=== PATIENT | female | born 1975 | race Caucasian/White ===

== ENCOUNTER 2016-08-02 03:45 | Inpatient (IN) | payer BC, OTHER ==
[~2016-08-02] VITALS: Ht 157.5 cm; Wt 106.6 kg
[~2016-08-02 03:45] MED LIST: PROM25TA10 PO
[2016-08-02] MEDS ORDERED: IV NORMAL SALINE 1000ML BAG 1,000 ML IV SCH ×2 (04:09→05:42)
[2016-08-02 04:16] LABS: BASO # 0.1 x10^3/uL (0.0-0.2); BASO % 1 % (0-3); EOS % 3 % (0-3); HEMATOCRIT 40.6 % (36.0-47.0); HEMOGLOBIN 13.4 g/dL (12.0-15.5); LYMPH # 4.1 x10^3/uL (1.0-4.8); LYMPH % 40 % (24-48); MEAN CORPUSCULAR HEMOGLOBIN 30 pg (25-35); MEAN CORPUSCULAR HGB CONC 33 g/dL (31-37); MEAN CORPUSCULAR VOLUME 89 fL (79-100); MONO % 8 % (0-9); NEUT % 48 % (31-73); PLATELET COUNT 355 x10^3/uL (140-400); RED BLOOD COUNT 4.56 x10^6/uL (3.50-5.40); RED CELL DISTRIBUTION WIDTH 13.9 % (11.5-14.5); WHITE BLOOD COUNT 10.1 x10^3/uL (4.0-11.0)
[2016-08-02] MEDS: NITROGLYCERIN SUBLINGUAL 0.4 MG BOTTLE OF 25. SL PRN ×3 (04:17→04:30)
[2016-08-02] MEDS ORDERED: ASPIRIN 81 MG TAB.CHEW PO ONE (04:30)
[2016-08-02 04:43] LABS: CALCIUM 8.9 mg/dL (8.5-10.1); CREATININE 0.8 mg/dL (0.6-1.0); GFR 79.9; POTASSIUM 4.2 mmol/L (3.5-5.1)
[2016-08-02 04:46] LABS: CKMB MASS 0.5 ng/mL (0.0-3.6); CREATINE KINASE 62 U/L (26-192)
[2016-08-02] MEDS: FENTANYL PF 100 MCG/2 ML VIAL. IV PRN ×2 (04:47→05:50)
[2016-08-02 04:52] LABS: ALBUMIN 3.6 g/dL (3.4-5.0); DIRECT BILIRUBIN 0.1 mg/dL (0.0-0.2); MAGNESIUM 1.9 mg/dL (1.8-2.4); TOTAL BILIRUBIN 0.3 mg/dL (0.2-1.0); TOTAL PROTEIN 7.1 g/dL (6.4-8.2)
[2016-08-02] MEDS ORDERED: FENTANYL PF 100 MCG/2 ML VIAL. IV PRN (05:45)
[2016-08-02] MEDS ORDERED: ONDANSETRON PF 4 MG/2 ML VIAL. IV PRN ×2 (05:45→12:00)
[2016-08-02] MEDS ORDERED: ACETAMINOPHEN 325 MG TABLET. PO PRN ×2 (05:45→12:00)
--- NOTE | 2016-08-02 05:51 | PHYS DOC ---
Past Medical History Past Medical History: Diabetes-Type II, Hypertension Additional Past Medical Histor: PLANTAR FACISITIES Past Surgical History: Cholecystectomy, Other Additional Past Surgical Histo: breast reduction, cyst removed Alcohol Use: None Drug Use: None Adult General Chief Complaint Chief Complaint: CHEST PAIN HPI HPI Patient is a 41 year old female who presents with complaint of chest pain. Patient states that her symptoms started worsening approximately 1 hour prior to arrival, however patient also states that she has been having intermittent chest pain over the past 3 weeks. Patient also states that she has been having back pain during this time. Patient states that her pain currently radiates into her back. Patient denies any associated nausea or sweating. Patient has history of hypertension, diabetes mellitus type 2. Patient also states that she has family history of myocardial infarction. Patient has remote history of social tobacco use but is not a current smoker. Patient describes the pain as "clinching," and rates it 8 out of 10. Patient has not taken any medications to help with symptoms. Review of Systems Review of Systems Constitutional: Denies fever or chills [] Eyes: Denies change in visual acuity, redness, or eye pain [] HENT: Denies nasal congestion or sore throat [] Respiratory: Denies cough or shortness of breath [] Cardiovascular: Chest pain [] GI: Denies abdominal pain, nausea, vomiting, bloody stools or diarrhea [] : Denies dysuria or hematuria [] Musculoskeletal: Back pain [] Integument: Denies rash or skin lesions [] Neurologic: Denies headache, focal weakness or sensory changes [] Endocrine: Denies polyuria or polydipsia [] Current Medications Current Medications Current Medications Medications (Trade) Dose Ordered Sig/Candelaria Start Time Stop Time Status Last Admin Dose Admin Aspirin (Children'S Aspirin) 324 mg 1X ONCE 08/02/16 04:30 08/02/16 04:31 DC 08/02/16 04:16 324 MG Fentanyl Citrate 50 mcg 50 mcg PRN Q15MIN PRN 08/02/16 04:15 08/03/16 04:14 08/02/16 04:47 50 MCG Nitroglycerin (Nitrostat) 0.4 mg PRN Q5MIN PRN 08/02/16 04:15 08/03/16 04:14 08/02/16 04:30 0.4 MG Sodium Chloride (Iv Sodium Chloride 0.9% 1000ml Bag) 1,000 ml @ 100 mls/hr Q10H 08/02/16 04:09 08/02/16 14:08 08/02/16 04:20 100 MLS/HR Allergies Allergies Allergies Coded Allergies Type Severity Reaction Last Updated Verified clarithromycin Allergy Intermediate 07/11/16 Yes latex Allergy Intermediate 07/01/15 Yes nifedipine Allergy Intermediate leg swelling 06/29/15 Yes povidone-iodine Allergy Intermediate 07/11/16 Yes soap Allergy Intermediate 07/11/16 Yes topiramate Adverse Reaction Intermediate see comment 07/01/15 Yes Physical Exam Physical Exam Constitutional: Alert, afebrile, appears in moderate discomfort. [] HENT: Normocephalic, atraumatic, bilateral external ears normal, oropharynx moist, no oral exudates, nose normal. [] Eyes: PERRLA, EOMI, conjunctiva normal, no discharge. [] Neck: Normal range of motion, no tenderness, supple, no stridor. [] Cardiovascular:Heart rate regular rhythm, no murmur [] Lungs & Thorax: Bilateral breath sounds clear to auscultation [] Abdomen: Bowel sounds normal, soft, no tenderness, no masses, no pulsatile masses. [] Skin: Warm, dry, no erythema, no rash. [] Back: No tenderness, no CVA tenderness. [] Extremities: No tenderness, no cyanosis, no clubbing, ROM intact, no edema. [] Neurologic: Alert and oriented X 3, normal motor function, normal sensory function, no focal deficits noted. [] Current Patient Data Vital Signs Vital Signs Date Time Temp Pulse Resp B/P Pulse Ox O2 Delivery O2 Flow Rate FiO2 08/02/16 04:47 18 93 Room Air 08/02/16 04:30 100 159/76 08/02/16 04:01 98 98.0 Lab Values Laboratory Tests Test 08/02/16 03:56 White Blood Count 10.1x10^3/uL (4.0-11.0) Red Blood Count 4.56x10^6/uL (3.50-5.40) Hemoglobin 13.4g/dL (12.0-15.5) Hematocrit 40.6% (36.0-47.0) Mean Corpuscular Volume 89fL (79-100) Mean Corpuscular Hemoglobin 30pg (25-35) Mean Corpuscular Hemoglobin Concent 33g/dL (31-37) Red Cell Distribution Width 13.9% (11.5-14.5) Platelet Count 355x10^3/uL (140-400) Neutrophils (%) (Auto) 48% (31-73) Lymphocytes (%) (Auto) 40% (24-48) Monocytes (%) (Auto) 8% (0-9) Eosinophils (%) (Auto) 3% (0-3) Basophils (%) (Auto) 1% (0-3) Neutrophils # (Auto) 4.8x10^3uL (1.8-7.7) Lymphocytes # (Auto) 4.1x10^3/uL (1.0-4.8) Monocytes # (Auto) 0.8x10^3/uL (0.0-1.1) Eosinophils # (Auto) 0.3x10^3/uL (0.0-0.7) Basophils # (Auto) 0.1x10^3/uL (0.0-0.2) Sodium Level 140mmol/L (136-145) Potassium Level 4.2mmol/L (3.5-5.1) Chloride Level 102mmol/L (98-107) Carbon Dioxide Level 27mmol/L (21-32) Anion Gap 11 (6-14) Blood Urea Nitrogen 10mg/dL (7-20) Creatinine 0.8mg/dL (0.6-1.0) Estimated GFR (Cockcroft-Gault) 79.9 Glucose Level 120mg/dL (70-99) H Calcium Level 8.9mg/dL (8.5-10.1) Magnesium Level 1.9mg/dL (1.8-2.4) Total Bilirubin 0.3mg/dL (0.2-1.0) Direct Bilirubin 0.1mg/dL (0.0-0.2) Aspartate Amino Transferase (AST) 29U/L (15-37) Alanine Aminotransferase (ALT) 49U/L (14-59) Alkaline Phosphatase 96U/L (46-116) Creatine Kinase 62U/L (26-192) Creatine Kinase MB (Mass) 0.5ng/mL (0.0-3.6) Creatine Kinase MB Relative Index % (0-4) Troponin I Quantitative < 0.017ng/mL (0.000-0.055) YA-Vjg-V-Type Natriuretic Peptide 36pg/mL (0-124) Total Protein 7.1g/dL (6.4-8.2) Albumin 3.6g/dL (3.4-5.0) Laboratory Tests 08/02/16 03:56 Laboratory Tests 08/02/16 03:56 EKG EKG Interpreted by me: Heart rate 100, sinus rhythm, leftward axis, no acute ST/T- wave abnormalities present [] Radiology/Procedures Radiology/Procedures One view AP chest x-ray interpreted by me: No infiltrate, no effusion, normal cardiac silhouette [] Course & Med Decision Making Course & Med Decision Making Pertinent Labs and Imaging studies reviewed. (See chart for details) Patient had bilateral blood pressure measurements which were consistent, thus suspicion for aortic dissection is low. The patient was given aspirin, nitroglycerin, and fentanyl in the emergency department. Patient states that her pain has been reduced but is still present at this time. Patient's initial cardiac enzymes were negative. Patient has risk factors for coronary artery disease including diabetes mellitus, hypertension, and family history. The patient will need to be admitted the hospital to rule out myocardial infarction. Patient was admitted to Dr. Madera. A routine consult was placed to Dr. Dupree to follow patient in hospital. Dragon Disclaimer Dragon Disclaimer This electronic medical record was generated, in whole or in part, using a voice recognition dictation system. Departure Departure Impression: Primary Impression: Chest pain Additional Impressions: Hypertension Diabetes mellitus Family history of myocardial infarction Disposition: ADMITTED INPATIENT Admitting Physician: Other Condition: STABLE Referrals: NO PCP (PCP) Problem Qualifiers Primary Impression: Chest pain Chest pain type: unspecified Qualified Code: R07.9 - Chest pain, unspecified Additional Impressions: Hypertension Hypertension type: essential hypertension Qualified Code: I10 - Essential ( primary) hypertension Diabetes mellitus Diabetes mellitus type: type 2 Diabetes mellitus complication status: without complication Diabetes mellitus usp insulin use: without usp use Qualified Code: E11.9 - Type 2 diabetes mellitus without complications MARANDA BRODY MD Aug 02, 2016 05:51
--- NOTE | 2016-08-02 06:48 | EKG ---
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
--- NOTE | 2016-08-02 07:29 | RAD ---
Indication chest pain. A single view of the chest was obtained. No prior imaging of the chest is available. The heart and pulmonary vessels appear normal. The lungs are clear. There is no pleural fluid or pneumothorax. Bony structures appear grossly intact. IMPRESSION: No acute or focal process is seen in the chest.
[2016-08-02 08:28] VITALS: BP 139/89
[2016-08-02 08:29] VITALS: BP 139/89
--- NOTE | 2016-08-02 08:56 | PDOC2 ---
CLARK CHAPPELL [facility] BILLER 08/02/16 0856: CARDIAC CONSULT DATE OF CONSULT Date of Consult DATE: 08/02/16 TIME: 08:48 REASON FOR CONSULT Reason for Consult: Chest pain REFERRING PHYSICIAN Referring Physician: Keshia SOURCE Source: Chart review, Patient HISTORY OF PRESENT ILLNESS HISTORY OF PRESENT ILLNESS This is a pleasant 41 yo female admitted for complains of chest pain. Reports that she woke up around 3 AM yesterday with squeezing/sharp midsternal pain which is simultaneous to her midback. When she has this pain this she feels some nausea but otherwise denies any palpitations, SOA. Denies any BURGESS. She has been having episodes of diaphoresis at night sometimes waking up drenched in sweats. Reports that with her work she typically lifts close to 50 pounds but she has been off lately in the last 2-3 weeks due to recent respiratory infection. This finally got better over a week ago. She also recently moved and has been unpacking some boxes this weekend. She has been having intermittent chest pain in the last 2 weeks sometimes it last all day. Her chest pain is reproducible with mild palpation both chest and back and ROM to left shoulder and positional changes but it also happens when she is still. She is significant for torn labrum and spurs to her left shoulder in the past which she had arthroscopic surgery on and also feels grating sensation to her right shoulder. She also has been taking Midol daily in the last 8-10 days mainly due to her menstrual cycle cramps. Denies any heartburn or GERD symptoms. Reports HELEN but has not been using her CPAP. Denies any recent long distance travels. She is significant for degenerative disc disease. Also reports that she has major depression with bipolar and currently attending psych therapy as an outpt. Suicide attempt in the past but denies any at this time. She has been feeling stressed out both at work and at home recently as well and at times feels panic attacks. Denies any CAD, VTE, falls or recent injury. PAST MEDICAL HISTORY Cardiovascular: HTN Pulmonary: Asthma, Other (HELEN (has not been using CPAP)) CENTRAL NERVOUS SYSTEM: Migraine GI: No pertinent hx Heme/Onc: No pertinent hx Hepatobiliary: Other (fatty liver diseae) Psych: Anxiety, Bipolar, Depression Musculoskeletal: Osteoarthritis, Other (mrbid obesity, plantar fascitis) Rheumatologic: No pertinent hx Infectious disease: No pertinent hx ENT: Allergic Rhinitis Renal/: UTI Endocrine: Diabetes (2) Dermatology: No pertinent hx PAST SURGICAL HISTORY Past Surgical History: Arthroscopy (left shoulder), Cholecystectomy, Other ( breast reduction) FAMILY HISTORY Family History: Coronary Artery Disease (grandmother), Other (SCD- father at 48 no autopsy done. ) SOCIAL HISTORY Smoke: No (previous smoker) ALCOHOL: none Drugs: None Lives: with Family CURRENT MEDICATIONS CURRENT MEDICATIONS Current Medications Medications (Trade) Dose Ordered Sig/Candelaria Route PRN Reason Start Time Stop Time Status Last Admin Dose Admin Aspirin (Children'S Aspirin) 324 mg 1X ONCE PO 08/02/16 04:30 08/02/16 04:31 DC 08/02/16 04:16 Nitroglycerin (Nitrostat) 0.4 mg PRN Q5MIN PRN SL CP RATING > 1/10 08/02/16 04:15 08/03/16 04:14 08/02/16 04:30 Fentanyl Citrate 50 mcg 50 mcg PRN Q15MIN PRN IV PAIN GREATER THAN 3/10 08/02/16 04:15 08/02/16 06:00 DC 08/02/16 05:50 Sodium Chloride (Iv Sodium Chloride 0.9% 1000ml Bag) 1,000 ml @ 100 mls/hr Q10H IV 08/02/16 04:09 08/02/16 05:48 DC 08/02/16 04:20 ALLERGIES ALLERGIES: Coded Allergies: clarithromycin (Verified Allergy, Intermediate, 07/11/16) latex (Verified Allergy, Intermediate, 07/01/15) nifedipine (Verified Allergy, Intermediate, leg swelling, 06/29/15) povidone-iodine (Verified Allergy, Intermediate, 07/11/16) soap (Verified Allergy, Intermediate, 07/11/16) topiramate (Verified Adverse Reaction, Intermediate, see comment, 07/01/15 ) headache, "memory loss" ROS Review of System 14 point ROS evaluated with pertinent positives noted per HPI PHYSICAL EXAM General: Alert, Oriented X3, Cooperative, No acute distress HEENT: Atraumatic, Mucous membr. moist/pink Lungs: Clear to auscultation, Normal air movement Heart: Regular rate, Normal S1, Normal S2, No murmurs Abdomen: Soft, No tenderness Extremities: No cyanosis, No edema Skin: No breakdown, No significant lesion Neuro: Normal speech, Sensation intact Psych/Mental Status: Mental status NL, Mood NL MUSCULOSKELETAL: Other (limited ROM to Left shoulder with duplicated CP and back pain with ROM and palpation) VITALS VITALS Vital Signs Date Time Temp Pulse Resp B/P Pulse Ox O2 Delivery O2 Flow Rate FiO2 08/02/16 08:29 97.8 91 20 139/89 95 Room Air 97.8 LABS Lab: Laboratory Tests Test 08/02/16 03:56 White Blood Count 10.1x10^3/uL (4.0-11.0) Red Blood Count 4.56x10^6/uL (3.50-5.40) Hemoglobin 13.4g/dL (12.0-15.5) Hematocrit 40.6% (36.0-47.0) Mean Corpuscular Volume 89fL (79-100) Mean Corpuscular Hemoglobin 30pg (25-35) Mean Corpuscular Hemoglobin Concent 33g/dL (31-37) Red Cell Distribution Width 13.9% (11.5-14.5) Platelet Count 355x10^3/uL (140-400) Neutrophils (%) (Auto) 48% (31-73) Lymphocytes (%) (Auto) 40% (24-48) Monocytes (%) (Auto) 8% (0-9) Eosinophils (%) (Auto) 3% (0-3) Basophils (%) (Auto) 1% (0-3) Neutrophils # (Auto) 4.8x10^3uL (1.8-7.7) Lymphocytes # (Auto) 4.1x10^3/uL (1.0-4.8) Monocytes # (Auto) 0.8x10^3/uL (0.0-1.1) Eosinophils # (Auto) 0.3x10^3/uL (0.0-0.7) Basophils # (Auto) 0.1x10^3/uL (0.0-0.2) Sodium Level 140mmol/L (136-145) Potassium Level 4.2mmol/L (3.5-5.1) Chloride Level 102mmol/L (98-107) Carbon Dioxide Level 27mmol/L (21-32) Anion Gap 11 (6-14) Blood Urea Nitrogen 10mg/dL (7-20) Creatinine 0.8mg/dL (0.6-1.0) Estimated GFR (Cockcroft-Gault) 79.9 Glucose Level 120mg/dL (70-99) Calcium Level 8.9mg/dL (8.5-10.1) Magnesium Level 1.9mg/dL (1.8-2.4) Total Bilirubin 0.3mg/dL (0.2-1.0) Direct Bilirubin 0.1mg/dL (0.0-0.2) Aspartate Amino Transf (AST/SGOT) 29U/L (15-37) Alanine Aminotransferase (ALT/SGPT) 49U/L (14-59) Alkaline Phosphatase 96U/L (46-116) Creatine Kinase 62U/L (26-192) Creatine Kinase MB (Mass) 0.5ng/mL (0.0-3.6) Creatine Kinase MB Relative Index % (0-4) Troponin I Quantitative < 0.017ng/mL (0.000-0.055) [id number]-Type Natriuretic Peptide 36pg/mL (0-124) Total Protein 7.1g/dL (6.4-8.2) Albumin 3.6g/dL (3.4-5.0) ASSESSMENT/PLAN ASSESSMENT/PLAN 1. Atypical Chest pain: Mixed features. Doubt ACS. Also component of GI could not be ruled out with daily NSAID use int he last 1-2 weeks. Initial troponin normal, continue to trend. EKG SR without acute changes. CXR unremarkable. Reproducible CP and back pain with palpation and ROM to left shoulder. This could also be masking ischemic changes with notable symptoms of nausea and at times waking up diaphoretic. Notable cardiac risk factors noted Father with SCD at 48 yo, uncontrolled HTN, DM2, new HLP and morbid obesity. Pretest probability for CAD is 8%. Will proceed with MPI to completely rule out any ischemic involvement. Will obtain testing prior. Recommend rehab MD consultation and will start on ECASA 81 mg and PPI. 2. Accelerated HTN: Complicated by uncontrolled HELEN. Possible hypertensive heart disease. TTE today. On BB at home, would prefer to switch to ACEi for cardiorenal protection unless specific use for BB other than HTN. 3. HLP: new. Will start on statin with hx of DM2. 4. DM2: takes metformin at home 5. Morbid obesity: lifestyle modification 6. Hx of depression/anxiety/bipolar disorder: currently taking outpt psych therapy. 7. HELEN: has not been using CPAP for several months. Encourage to restart. 8. Family hx of SCD: Father suddenly at 48 no autopsy done. Problems: OSMANY ANGLIN MD 08/02/16 7188: CARDIAC CONSULT ALLERGIES ALLERGIES: Coded Allergies: clarithromycin (Verified Allergy, Intermediate, 07/11/16) latex (Verified Allergy, Intermediate, 07/01/15) nifedipine (Verified Allergy, Intermediate, leg swelling, 06/29/15) povidone-iodine (Verified Allergy, Intermediate, 07/11/16) soap (Verified Allergy, Intermediate, 07/11/16) topiramate (Verified Adverse Reaction, Intermediate, see comment, 07/01/15 ) headache, "memory loss" ASSESSMENT/PLAN ASSESSMENT/PLAN Patient seen and examined. Agree with INCINERATOR ATTENDANT's assessment and plan. Lexiscan nuclear stress test did not show any significant ischemia. Chest pain most probably musculoskeletal. Blood pressure better controlled since admission. Okay for discharge from cardiac standpoint. Thank you for your consultation. Problems: CLARK CHAPPELL APRN Aug 02, 2016 08:56 OSMANY ANGLIN MD Aug 02, 2016 16:28
[2016-08-02] MEDS ORDERED: DULO20CA PO (08:58)
[2016-08-02] MEDS ORDERED: METO25TA9 PO (08:58)
[2016-08-02] MEDS ORDERED: METF500T4 PO (08:58)
[2016-08-02] MEDS ORDERED: CETI10TA22 PO (08:59)
[2016-08-02] MEDS ORDERED: OXCA300T PO (08:59)
[2016-08-02] MEDS ORDERED: TRAZ50TA15 PO (08:59)
[2016-08-02 09:37] LABS: CHOLESTEROL/HDL RATIO 4.2
--- NOTE | 2016-08-02 09:45 | ACF ---
Admission Forms Criteria TELEMETRY CARE Telemetry Admission Guidelines (Place 'X' for any and all applicable criteria): Admission to telemetry [A] may be indicated for ANY ONE of the following(1)(2)(3 )(4)(5): [X]I. Cardiac disease, including ANY ONE of the following (9)(10)(11)(12)(13 ): [ ]a) Postacute WI [ ]b) Low-risk patients with ST-segment elevation WI who have undergone successful percutaneous coronary intervention [ ]c) Unstable angina [X]d) Suspected WI (until it is ruled out) [ ]e) Post cardiac surgery (first 48 to 72 hours unless complications occur) [ ]f) Acute arrhythmias (including significant tachycardia or bradycardia) [B] [ ]g) Firing of an implantable cardioverter defibrillator [C] [ ]h) Suspected pacemaker or implantable cardioverter defibrillator malfunction (10) [ ]i) New administration or adjustment of an antiarrhythmic drug [D ] [ ]j) Child admitted for acute congestive heart failure [ ]j) Long QT syndrome [ ]k) Advanced heart block (eg, second-degree Mobitz type II, third- degree heart block) [ ]l) Acute myocarditis or pericarditis [ ]m) Short-term (ambulatory or inpatient) monitoring after a cardiac procedure as indicated by ANY ONE of the following [E]: [ ]i) Electrophysiologic studies [ ]ii) Percutaneous coronary intervention with stent placement [ ]iii) Pacemaker placement with cardiac conduction defect [ ]iv) Implantable cardiac defibrillator placement [ ]II. Drug overdose or poisoning with substance that causes arrhythmias or QT prolongation (eg, phenothiazines, sympathomimetic agents, cyclic antidepressants, digitalis, antiarrhythmic drugs)(15) [ ]III. Short-term (ambulatory or inpatient) monitoring after therapeutic or diagnostic procedure requiring conscious sedation or anesthesia (eg, endoscopy, elective cardioversion) [ ]IV. Acute cerebrovascular even[F](18) [ ]V. Massive blood transfusion (eg, at least 10 units of packed red blood cells in 24 hours) [ ]. Variceal bleeding after endoscopy, sclerotherapy, or IV vasopressin [ ]VII. Uncorrected electrolyte abnormalities associated with an increased risk of dangerous arrhythmia [G]; examples include [ ]a) Hyperkalemia with attributable ECG changes [ ]b) Potassium greater than 6.5 mmol/L (mEq/L) in a patient without history of chronic renal disease [ ]c) Prolonged QT attributed to hypokalemia, hypomagnesemia, or hypocalcemia [ ]VIII.Unexplained syncope or other neurologic event suspected of being due to arrhythmia due to a finding that increases risk; examples include(19)(20)(21): [ ]a) High-risk ECG findings (eg, bifascicular block, bradycardia, abnormal QT interval, ventricular pre- excitation) [ ]b) History of previous syncope due to arrhythmia [ ]c) Abnormal ventricular function (eg, reduced ejection fraction ) [ ]d) Exertional or supine syncope [ ]e) Concerning syncope characteristics (eg, sudden loss of consciousness without prodrome) [ ]f) Family history of sudden [ ]g) Use of arrhythmogenic medication [ ]h) Suspected cardiac ischemia [ ]i) Known channelopathy (eg, long QT syndrome, Brugada syndrome, or catecholaminergic paroxysmal ventricular tachycardia) [ ]j) Known structural heart disease (eg, hypertrophic cardiomyopathy , severe valvular disease) [ ]k) Palpitations preceding syncope The original [employer] content created by [employer] has been revised. The portions of the content which have been revised are identified through the use of italic text or in bold, and [employer] has neither reviewed nor approved the modified material. All other unmodified content is copyright [employer]. Please see references footnoted in the original [employer] edition 2016 Admission Criteria Met?: Yes ANTWON CHAVIRA Aug 02, 2016 09:45
[2016-08-02] MEDS ORDERED: ASPIRIN ENTERIC COATED 81 MG TABLET.DR. PO SCH (10:00)
[2016-08-02 11:00] VITALS: BP 151/91
[2016-08-02] MEDS ORDERED: PANTOPRAZOLE 40 MG TABLET. PO SCH (11:30)
[2016-08-02] MEDS ORDERED: TRAMADOL 50 MG TABLET. PO PRN (12:00)
[2016-08-02] MEDS ORDERED: DEXTROSE 50% 25 GM / 50ML DISP.SYRIN. IV PRN (12:00)
[2016-08-02] MEDS ORDERED: traZODone 50 MG TABLET. PO PRN (12:00)
[2016-08-02] MEDS ORDERED: ATOR10TA60 PO (12:15)
[2016-08-02] MEDS ORDERED: TRAM50TA PO (12:15)
[2016-08-02] MEDS ORDERED: ASPI81TA9 PO (12:15)
[2016-08-02] MEDS ORDERED: DULOXETINE HCL 20 MG CAPSULE.DR PO SCH (12:30)
[2016-08-02] MEDS ORDERED: CETIRIZINE HCL 10 MG TABLET PO SCH (12:30)
[2016-08-02] MEDS ORDERED: METFORMIN 500 MG TABLET. PO SCH (12:30)
[2016-08-02] MEDS ORDERED: OXCARBAZEPINE 300 MG TABLET. PO SCH (12:30)
[2016-08-02] MEDS ORDERED: METOPROLOL SUCC 24HR ER 50 MG TAB.ER.24H. PO SCH (12:30)
[2016-08-02] MEDS ORDERED: INSULIN ASPART 300 UNITS/3 ML INSULN.PEN SQ SCH (12:30)
[2016-08-02 12:57] LABS: BILIRUBIN,URINE NEGATIVE (NEG); GLUCOSE,URINE NEGATIVE (NEG); NITRITE,URINE NEGATIVE (NEG); PROTEIN,URINE NEGATIVE (NEG-TRACE); UROBILINOGEN,URINE 0.2 mg/dL (0.2 mg/dL)
[2016-08-02 12:59] LABS: NEG OBC UR NEG; POS OBC UR POS
[2016-08-02 13:04] LABS: BARBITURATES NEG (NEG); BENZODIAZEPINES NEG (NEG); CANNABINOIDS NEG (NEG); COCAINE NEG (NEG); METHADONE NEG (NEG); OPIATES NEG (NEG); PHENCYCLIDINE NEG (NEG)
[2016-08-02 13:06] LABS: BACTERIA,URINE FEW /HPF (0-FEW); RBC,URINE OCC /HPF (0-2); SQUAMOUS EPITHELIAL CELL,UR MANY /LPF
[2016-08-02 13:07] LABS: ETHANOL, URINE NEG (NEG)
[2016-08-02] MEDS ORDERED: REGADENOSON 0.4 MG/5 ML DISP.SYRIN. IV ONE (13:15)
[2016-08-02] MEDS ORDERED: PANT40TA5 PO (13:41)
--- NOTE | 2016-08-02 13:42 | PDOC1 ---
History and Physical Date of Admission Date of Admission 08/02/16 Identification/Chief Complaint Chief Complaint chest pain, back pain Problems: Source Source: Chart review, Patient History of Present Illness History of Present Illness HPI HPI Patient is a 41 year old female who presents with complaint of chest pain. pT said she has been feeling upper back pain for a long time. CHest pain for 3 weeks, happens when has stress, denies N/V or diaphoresis. The pain is sharp, 8/ 10, radiating to back. Has chest wall and epigastric tenderness. Patient has history of hypertension, diabetes mellitus type 2. Patient also states that she has family history of myocardial infarction. Patient has remote history of social tobacco use but is not a current smoker. chronic diarrhea since cholecystectomy. EKG, ce NEG. Past Medical History Cardiovascular: HTN Pulmonary: Asthma, Other (HELEN (has not been using CPAP)) CENTRAL NERVOUS SYSTEM: Migraine GI: No pertinent hx Heme/Onc: No pertinent hx Hepatobiliary: Other (fatty liver diseae) Psych: Anxiety, Bipolar, Depression Rheumatologic: No pertinent hx Infectious disease: No pertinent hx ENT: Allergic Rhinitis Renal/: UTI Endocrine: Diabetes (2) Dermatology: No pertinent hx Past Surgical History Past Surgical History: Arthroscopy (left shoulder), Cholecystectomy, Other ( breast reduction) Family History Family History: Coronary Artery Disease (grandmother), Other (SCD- father at 48 no autopsy done. ) Social History Smoke: No (previous smoker) ALCOHOL: none Drugs: None Current Problem List Problem List Problems Medical Problems: (1) Chest pain Status: Acute (2) Diabetes mellitus Status: Acute (3) Hypertension Status: Acute Current Medications Current Medications Current Medications Medications (Trade) Dose Ordered Sig/Candelaria Start Time Stop Time Status Last Admin Dose Admin Acetaminophen (Tylenol) 650 mg PRN Q6HRS PRN 08/02/16 12:00 Aspirin (Children'S Aspirin) 324 mg 1X ONCE 08/02/16 04:30 08/02/16 04:31 DC 08/02/16 04:16 324 MG Aspirin (Ecotrin) 81 mg DAILYWBKFT 08/02/16 10:00 Atorvastatin Calcium (Lipitor) 20 mg QHS 08/02/16 21:00 Cetirizine HCl (Zyrtec) 10 mg DAILY 08/02/16 12:30 Dextrose 12.5 gm PRN Q15MIN PRN 08/02/16 12:00 Duloxetine HCl (Cymbalta) 60 mg DAILY 08/02/16 12:30 Fentanyl Citrate (Fentanyl 2ml Vial) 50 mcg PRN Q15MIN PRN 08/02/16 04:15 08/02/16 06:00 DC 08/02/16 05:50 50 MCG Fentanyl Citrate 50 mcg 50 mcg PRN Q2HR PRN 08/02/16 05:45 08/03/16 05:44 Insulin Aspart (Novolog) 0-9 UNITS TIDWMEALS 08/02/16 12:30 Metformin HCl (Glucophage) 500 mg DAILY 08/02/16 12:30 Metoprolol Succinate (Toprol Xl) 50 mg DAILY 08/02/16 12:30 Nitroglycerin (Nitrostat) 0.4 mg PRN Q5MIN PRN 08/02/16 04:15 08/03/16 04:14 08/02/16 04:30 0.4 MG Ondansetron HCl (Zofran) 4 mg PRN Q6HRS PRN 08/02/16 12:00 Oxcarbazepine (Trileptal) 300 mg BID 08/02/16 12:30 Pantoprazole Sodium (Protonix) 40 mg DAILYAC 08/02/16 11:30 Regadenoson (Lexiscan) 0.4 mg 1X ONCE 08/02/16 13:15 08/02/16 13:20 DC 08/02/16 13:34 0.4 MG Sodium Chloride (Iv Sodium Chloride 0.9% 1000ml Bag) 1,000 ml @ 100 mls/hr Q10H 08/02/16 05:42 08/03/16 05:41 08/02/16 05:42 100 MLS/HR Tramadol HCl (Ultram) 50 mg PRN Q6HRS PRN 08/02/16 12:00 Trazodone HCl (Desyrel) 100 mg PRN QHS PRN 08/02/16 12:00 Allergies Allergies Allergies Coded Allergies Type Severity Reaction Last Updated Verified clarithromycin Allergy Intermediate 07/11/16 Yes latex Allergy Intermediate 07/01/15 Yes nifedipine Allergy Intermediate leg swelling 06/29/15 Yes povidone-iodine Allergy Intermediate 07/11/16 Yes soap Allergy Intermediate 07/11/16 Yes topiramate Adverse Reaction Intermediate see comment 07/01/15 Yes ROS Review of System CONSTITUTIONAL: No fever or chills EYES: No recent changes SKIN: No rash or itching CARDIOVASCULAR: No chest pain, syncope, palpitations, or edema RESPIRATORY: No SOB or cough GASTROINTESTINAL: No nausea, vomiting or abdominal pain NEUROLOGICAL: No headaches or weakness ENDOCRINE: No cold or heat intolerance GENITOURINARY: No urgency or frequency of urination MUSCULOSKELETAL: No back pain or joint pain LYMPHATICS: No enlarged lymph nodes PSYCHIATRIC: No anxiety or depression Physical Exam Physical Exam GEN.: No apparent distress. Alert and oriented. HEENT: Head is normocephalic, atraumatic NECK: Supple. LUNGS: Clear to auscultation. CHEST wall and epigastric area has tenderness. HEART: RRR, S1, S2 present. Peripheral pulses intact ABDOMEN: Soft, nontender. Positive bowel sounds. EXTREMITIES: Without any cyanosis. NEUROLOGIC: Normal speech, normal tone PSYCHIATRIC: Normal affect, normal mood. SKIN: No ulcerations Vitals Vitals Vital Signs Date Time Temp Pulse Resp B/P Pulse Ox O2 Delivery O2 Flow Rate FiO2 08/02/16 11:00 98.0 95 20 151/91 94 Room Air 98.0 Labs Labs Laboratory Tests Test 08/02/16 03:56 08/02/16 10:07 08/02/16 12:50 White Blood Count 10.1x10^3/uL (4.0-11.0) Red Blood Count 4.56x10^6/uL (3.50-5.40) Hemoglobin 13.4g/dL (12.0-15.5) Hematocrit 40.6% (36.0-47.0) Mean Corpuscular Volume 89fL (79-100) Mean Corpuscular Hemoglobin 30pg (25-35) Mean Corpuscular Hemoglobin Concent 33g/dL (31-37) Red Cell Distribution Width 13.9% (11.5-14.5) Platelet Count 355x10^3/uL (140-400) Neutrophils (%) (Auto) 48% (31-73) Lymphocytes (%) (Auto) 40% (24-48) Monocytes (%) (Auto) 8% (0-9) Eosinophils (%) (Auto) 3% (0-3) Basophils (%) (Auto) 1% (0-3) Neutrophils # (Auto) 4.8x10^3uL (1.8-7.7) Lymphocytes # (Auto) 4.1x10^3/uL (1.0-4.8) Monocytes # (Auto) 0.8x10^3/uL (0.0-1.1) Eosinophils # (Auto) 0.3x10^3/uL (0.0-0.7) Basophils # (Auto) 0.1x10^3/uL (0.0-0.2) Sodium Level 140mmol/L (136-145) Potassium Level 4.2mmol/L (3.5-5.1) Chloride Level 102mmol/L (98-107) Carbon Dioxide Level 27mmol/L (21-32) Anion Gap 11 (6-14) Blood Urea Nitrogen 10mg/dL (7-20) Creatinine 0.8mg/dL (0.6-1.0) Estimated GFR (Cockcroft-Gault) 79.9 Glucose Level 120mg/dL (70-99) Calcium Level 8.9mg/dL (8.5-10.1) Magnesium Level 1.9mg/dL (1.8-2.4) Total Bilirubin 0.3mg/dL (0.2-1.0) Direct Bilirubin 0.1mg/dL (0.0-0.2) Aspartate Amino Transf (AST/SGOT) 29U/L (15-37) Alanine Aminotransferase (ALT/SGPT) 49U/L (14-59) Alkaline Phosphatase 96U/L (46-116) Creatine Kinase 62U/L (26-192) Creatine Kinase MB (Mass) 0.5ng/mL (0.0-3.6) Creatine Kinase MB Relative Index % (0-4) Troponin I Quantitative < 0.017ng/mL (0.000-0.055) < 0.017ng/mL (0.000-0.055) IG-Wmt-X-Type Natriuretic Peptide 36pg/mL (0-124) Total Protein 7.1g/dL (6.4-8.2) Albumin 3.6g/dL (3.4-5.0) Triglycerides Level 284mg/dL (0-150) Cholesterol Level 220mg/dL (0-200) LDL Cholesterol, Calculated 110mg/dL (0-100) VLDL Cholesterol, Calculated 57mg/dL (0-40) HDL Cholesterol 53mg/dL (40-60) Cholesterol/HDL Ratio 4.2 Thyroid Stimulating Hormone (TSH) 4.775uIU/mL (0.358-3.74) Urine Collection Type Void Urine Color Yellow Urine Clarity Clear Urine pH 6.0 Urine Specific [place] 1.015 Urine Protein Negativemg/dL (NEG-TRACE) Urine Glucose (UA) Negativemg/dL (NEG) Urine Ketones (Stick) Negativemg/dL (NEG) Urine Blood Negative (NEG) Urine Nitrite Negative (NEG) Urine Bilirubin Negative (NEG) Urine Urobilinogen Dipstick 0.2mg/dL (0.2 mg/dL) Urine Leukocyte Esterase Negative (NEG) Urine RBC Occ/HPF (0-2) Urine WBC 1-4/HPF (0-4) Urine Squamous Epithelial Cells Many/LPF Urine Bacteria Few/HPF (0-FEW) Urine Test Negative (NEG) Urine Opiates Screen Neg (NEG) Urine Methadone Screen Neg (NEG) Urine Barbiturates Neg (NEG) Urine Phencyclidine Screen Neg (NEG) Urine Amphetamine/Methamphetamine Neg (NEG) Urine Benzodiazepines Screen Neg (NEG) Urine Cocaine Screen Neg (NEG) Urine Cannabinoids Screen Neg (NEG) Urine Ethyl Alcohol Neg (NEG) Laboratory Tests Test 08/02/16 03:56 08/02/16 10:07 08/02/16 12:50 White Blood Count 10.1x10^3/uL (4.0-11.0) Red Blood Count 4.56x10^6/uL (3.50-5.40) Hemoglobin 13.4g/dL (12.0-15.5) Hematocrit 40.6% (36.0-47.0) Mean Corpuscular Volume 89fL (79-100) Mean Corpuscular Hemoglobin 30pg (25-35) Mean Corpuscular Hemoglobin Concent 33g/dL (31-37) Red Cell Distribution Width 13.9% (11.5-14.5) Platelet Count 355x10^3/uL (140-400) Neutrophils (%) (Auto) 48% (31-73) Lymphocytes (%) (Auto) 40% (24-48) Monocytes (%) (Auto) 8% (0-9) Eosinophils (%) (Auto) 3% (0-3) Basophils (%) (Auto) 1% (0-3) Neutrophils # (Auto) 4.8x10^3uL (1.8-7.7) Lymphocytes # (Auto) 4.1x10^3/uL (1.0-4.8) Monocytes # (Auto) 0.8x10^3/uL (0.0-1.1) Eosinophils # (Auto) 0.3x10^3/uL (0.0-0.7) Basophils # (Auto) 0.1x10^3/uL (0.0-0.2) Sodium Level 140mmol/L (136-145) Potassium Level 4.2mmol/L (3.5-5.1) Chloride Level 102mmol/L (98-107) Carbon Dioxide Level 27mmol/L (21-32) Anion Gap 11 (6-14) Blood Urea Nitrogen 10mg/dL (7-20) Creatinine 0.8mg/dL (0.6-1.0) Estimated GFR (Cockcroft-Gault) 79.9 Glucose Level 120mg/dL (70-99) Calcium Level 8.9mg/dL (8.5-10.1) Magnesium Level 1.9mg/dL (1.8-2.4) Total Bilirubin 0.3mg/dL (0.2-1.0) Direct Bilirubin 0.1mg/dL (0.0-0.2) Aspartate Amino Transf (AST/SGOT) 29U/L (15-37) Alanine Aminotransferase (ALT/SGPT) 49U/L (14-59) Alkaline Phosphatase 96U/L (46-116) Creatine Kinase 62U/L (26-192) Creatine Kinase MB (Mass) 0.5ng/mL (0.0-3.6) Creatine Kinase MB Relative Index % (0-4) Troponin I Quantitative < 0.017ng/mL (0.000-0.055) < 0.017ng/mL (0.000-0.055) YY-Vuw-X-Type Natriuretic Peptide 36pg/mL (0-124) Total Protein 7.1g/dL (6.4-8.2) Albumin 3.6g/dL (3.4-5.0) Triglycerides Level 284mg/dL (0-150) Cholesterol Level 220mg/dL (0-200) LDL Cholesterol, Calculated 110mg/dL (0-100) VLDL Cholesterol, Calculated 57mg/dL (0-40) HDL Cholesterol 53mg/dL (40-60) Cholesterol/HDL Ratio 4.2 Thyroid Stimulating Hormone (TSH) 4.775uIU/mL (0.358-3.74) Urine Collection Type Void Urine Color Yellow Urine Clarity Clear Urine pH 6.0 Urine Specific [place] 1.015 Urine Protein Negativemg/dL (NEG-TRACE) Urine Glucose (UA) Negativemg/dL (NEG) Urine Ketones (Stick) Negativemg/dL (NEG) Urine Blood Negative (NEG) Urine Nitrite Negative (NEG) Urine Bilirubin Negative (NEG) Urine Urobilinogen Dipstick 0.2mg/dL (0.2 mg/dL) Urine Leukocyte Esterase Negative (NEG) Urine RBC Occ/HPF (0-2) Urine WBC 1-4/HPF (0-4) Urine Squamous Epithelial Cells Many/LPF Urine Bacteria Few/HPF (0-FEW) Urine Test Negative (NEG) Urine Opiates Screen Neg (NEG) Urine Methadone Screen Neg (NEG) Urine Barbiturates Neg (NEG) Urine Phencyclidine Screen Neg (NEG) Urine Amphetamine/Methamphetamine Neg (NEG) Urine Benzodiazepines Screen Neg (NEG) Urine Cocaine Screen Neg (NEG) Urine Cannabinoids Screen Neg (NEG) Urine Ethyl Alcohol Neg (NEG) VTE Prophylaxis Ordered VTE Prophylaxis Devices: Yes VTE Pharmacological Prophylaxi: No Assessment/Plan Assessment/Plan 1. atypical chest pain, likely 2/2 muscular pain 2. chronic back pain 3, dm2 4. htn 5. abd pain , 2/2 ULCER or GERD 6. CHronic diarrhea since ying 7. HLD 8. OBEsity PLAN: 1. fu with card, MPI today 2. pain control, add tramadol 3. cont home meds 4. add asa, lipitor protonix dc home today if MPI neg. dR. [place] consult MIREYA THORNTON MD Aug 02, 2016 13:42
--- NOTE | 2016-08-02 14:21 | CARD ---
APPROVED REPORT EXAM: Two-dimensional and M-mode echocardiogram with Doppler and color Doppler. Other Information Quality : Average Rhythm : NSR INDICATION Hypertension/HCVD Chest Pain 2D DIMENSIONS RVDd3.0 (2.9-3.5cm)Left Atrium(2D)3.5 (1.6-4.0cm) IVSd1.1 (0.7-1.1cm)Aortic Root(2D)2.6 (2.0-3.7cm) LVDd3.9 (3.9-5.9cm)LVOT Diameter2.0 (1.8-2.4cm) PWd1.1 (0.7-1.1cm)LVDs2.5 (2.5-4.0cm) FS (%) 36.5 %SV43.5 ml LVEF(%)66.9 (>50%) Aortic Valve AoV Peak Prakash.116.3cm/sAoV VTI22.3cm AO Peak GR.5.4mmHgLVOT Peak Prakash.109.3cm/s LVOT VTI 22.14cmAO Mean GR.3mmHg ANSLEY (VMAX)2.91qa7RXP (VTI)3.03cm2 Mitral Valve MV E Bfxotbrv34.8cm/sMV DECEL YZJA993ex MV A Bksgluka157.7cm/sMV E Mean Gr.4mmHg MV UIW40kyR/A Ratio0.7 MV A Lwlhougo462sbAWJ (PHT)3.66cm2 TDI E/Lateral E'8.3E/Medial E'9.7 Pulmonary Valve PV Peak Jwanlvng662.0cm/sPV Peak Grad.7mmHg RVOT VTI21.4cm Tricuspid Valve TR P. Ibholgra911ki/sRAP KPMZPXAB5ssJm TR Peak Gr.79yuUsBXYN67muNw Pulmonary Vein S1 Szixqnde61.8cm/sD2 Qkooesmq60.9cm/s LEFT VENTRICLE The left ventricle is normal size. There is normal left ventricular wall thickness. Left ventricle sy stolic function is normal. The Ejection Fraction is 60-65%. There is normal LV segmental wall motion. Tissue Doppler imaging reveals mild left ventricular diastolic dysfunction. Transmitral Doppler flow pattern is Grade I-abnormal relaxation pattern. RIGHT VENTRICLE The right ventricle is normal size. The right ventricular systolic function is normal. ATRIA The left atrium size is normal. The right atrium size is normal. The interatrial septum is intact wit h no evidence for an atrial septal defect or patent foramen ovale as noted on 2-D or Doppler imaging. AORTIC VALVE The aortic valve is normal in structure and function. The aortic valve is trileaflet. Doppler and Col or Flow revealed no significant aortic regurgitation. There is no significant aortic valvular stenosi s. MITRAL VALVE The mitral valve is normal in structure and function. There is no mitral valve stenosis. Doppler and Color Flow revealed no mitral valve regurgitation noted. TRICUSPID VALVE The tricuspid valve is normal in structure and function. Doppler and Color Flow revealed trace tricus pid regurgitation. The PA pressure was estimated at 23 mmHg. There is no tricuspid valve stenosis. PULMONIC VALVE The pulmonic valve is not well visualized. Doppler and Color Flow revealed no pulmonic valvular regur gitation. There is no pulmonic valvular stenosis. GREAT VESSELS The aortic root is normal in size. Normal pulmonary venous flow (Doppler). The IVC is normal in size and collapses >50% with inspiration. PERICARDIAL EFFUSION There is no evidence of significant pericardial effusion. Critical Notification Critical Value: No <Conclusion> The left ventricle is normal size. Left ventricle systolic function is normal. The Ejection Fraction is 60-65%. There is no significant aortic valvular stenosis. Doppler and Color Flow revealed no significant aortic regurgitation. Doppler and Color Flow revealed no mitral valve regurgitation noted. Doppler and Color Flow revealed trace tricuspid regurgitation. The PA pressure was estimated at 23 mmHg. There is no evidence of significant pericardial effusion.
--- NOTE | 2016-08-02 14:54 | RAD ---
APPROVED REPORT Test Type: Pharmacological Stress Nurse/Tech: Conchita Gonzalez R.N. Test Indications: Chest pain Cardiac History: HTN Medications: SEE EMR Medical History: SEE EMR Resting ECG: SR Resting Heart Rate: 95 bpm Resting Blood Pressure: 147/85mmHg Pretest Chest Pain: None Nurse/Tech Notes S1S2, lungs CTA, denied chest pain and SOA. C/O back pain. Consent: The procedure was explained to the patient in lay terms. Informed consent was witnessed. Jovanni eout was entered into [employer]. History and Stress Test performed by Conchita Gonzalez R.N. Pharm. Details Pharmacologic stress testing was performed using 0.4mg per 5ml of regadenoson given intravenously ove r 7-10 seconds. Stress Symptoms SOA. POST EXERCISE Reason for Termination: Infusion complete Max HR: 125 bpm Max Blood Pressure: 157/84mmHg Blood Pressure response to exercise: Normal blood pressure response during stress. Chest Pain: No. Arrhythmia: No. ST Change: No. INTERPRETATION Stress EKG Conclusion: No acute changes were noted. Imaging Protocol IMAGE PROTOCOL: Stress Tc-99m/rest Tc-99m 2 days Rest: Stress: Viability: Radiopharm.Tc99m Sestamibi [id number] Duration 15min. Img Date 08/02/2016 Inj-Img [id number]. Stress Admin Site: IV - Right WristAdministrator: Russell Rojas, RT (R)(N) STRESS DATA End Diast. Vol.59.0mlAv. Heart Zrjt238.0bpm End Syst. Vol.13.0mlCO Index BSA0.0L/min Myocardial Mass96.0gEject. Klauiuxv01.0% Stress Rates Pk. Fill Rate2.25EDV/secLVtime Pk. Fill 59.79msec Pk. Empty Rate4.30ESV/secLVtime Pk. Eject76.83msec 07/16 Pk. Fill1.70EDV/sec Stress Scores Regional WT0.00Summed WT0.00 Regional WM0.00Summed WM7.00 LV Perfusion Normal myocardial perfusion at stress. Wall Motion Normal LV function. LV Perf. Quant 17 Seg. SSS0.00 Stress Defect Extent (% LAD)0.00Rest Defect Extent (% LAD)Rev. Defect Extent (% LAD)0.00 Stress Defect Extent (% LCX) 5.00Rest Defect Extent (% LCX)Rev. Defect Extent (% LCX)0.00 Stress Defect Extent (% RCA)0.00Rest Defect Extent (% RCA)Rev. Defect Extent (% RCA)0.00 Stress Defect Extent (% AKUA)0.90Rest Defect Extent (% AKUA)Rev. Defect Extent (% AKUA)0.00 Other Information Quality:Good Risk Assessment: Low Risk Conclusion 1. No stress induced EKG changes. 2. Normal myocardial perfusion at stress. 3. Normal EF at > 70% 4. Low risk study
[2016-08-02 15:00] VITALS: BP 161/104
--- NOTE | 2016-08-02 15:09 | PDOC3 ---
Discharge Summary [facility] Date of Admission: Aug 02, 2016 Discharge Date: Aug 02, 2016 Admitting Diagnosis 1. atypical chest pain, likely 2/2 muscular pain 2. chronic back pain 3, dm2 4. htn 5. abd pain , 2/2 ULCER or GERD 6. CHronic diarrhea since ying 7. HLD 8. OBEsity Problems: Final Diagnosis Problems Medical Problems: (1) Chest pain Status: Acute (2) Diabetes mellitus Status: Acute (3) Hypertension Status: Acute CONSULTS card Brief Hospital Course Patient is a 41 year old female who presents with complaint of chest pain for 3 weeks,happens when has stress, denies N/V or diaphoresis. The pain is sharp, 8 /10, radiating to back. Has chest wall and epigastric tenderness. Patient has history of hypertension, diabetes mellitus type 2. Patient also states that she has family history of myocardial infarction. Patient has remote history of social tobacco use but is not a current smoker. chronic diarrhea since cholecystectomy. EKG, ce NEG. echo and MPI all neg for CAD. DC HOME with protonix, tramadol, add asa, lipitor. dc time 35min Patient History: Patient reports no known family medical history. Problems: Disposition home CONDITION AT DISCHARGE: Improved Diet ada Scheduled Aspirin (Aspirin Ec) 81 MG PO DAILYWBKFT Atorvastatin Calcium (Atorvastatin Calcium) 20 MG PO QHS Cetirizine Hcl (Zyrtec) 1 TAB PO DAILY (Reported) Duloxetine Hcl (Cymbalta) 60 MG PO DAILY (Reported) Metformin Hcl (Metformin Hcl) 1 TAB PO DAILY (Reported) Metoprolol Succinate (Metoprolol Succinate ( Xl )) 50 MG PO DAILY (Reported) Oxcarbazepine (Oxcarbazepine) 1 TAB PO BID (Reported) Pantoprazole Sodium (Pantoprazole Sodium) 40 MG PO DAILYAC Scheduled PRN Tramadol Hcl (Tramadol Hcl) 50 MG PO PRN Q6HRS PRN PRN PAIN Trazodone Hcl (Trazodone Hcl) 100 MG PO HS PRN PRN INSOMNIA (Reported) Follow Up pcp in 2 weeks MIREYA THORNTON MD Aug 02, 2016 15:09
[2016-08-02] MEDS ORDERED: ATORVASTATIN CALCIUM 10 MG TABLET. PO SCH (21:00)
== END 2016-08-02 15:36 | disposition home or self-care (01) | DRG 392 ==
LOC: ER 03:45 → 6 SOUTH 04:53
PROVIDERS: ADMIT Internal Medicine Hematology & Oncology; ATTEND Internal Medicine Hematology & Oncology
DX: K21.9 Gastro-esophageal reflux disease without esophagitis (principal); Z68.41 Body mass index [BMI] 40.0-44.9, adult; R07.89 Other chest pain; E11.9 Type 2 diabetes mellitus without complications; I11.9 Hypertensive heart disease without heart failure; E66.01 Morbid (severe) obesity due to excess calories; E78.5 Hyperlipidemia, unspecified; F31.9 Bipolar disorder, unspecified; F41.0 Panic disorder [episodic paroxysmal anxiety]; G47.33 Obstructive sleep apnea (adult) (pediatric); G89.29 Other chronic pain; J45.909 Unspecified asthma, uncomplicated; K52.9 Noninfective gastroenteritis and colitis, unspecified; K76.0 Fatty (change of) liver, not elsewhere classified; F41.9 Anxiety disorder, unspecified; G43.909 Migraine, unspecified, not intractable, without status migrainosus; M54.9 Dorsalgia, unspecified; M19.90 Unspecified osteoarthritis, unspecified site; Z82.41 Family history of sudden cardiac death; Z82.49 Family history of ischemic heart disease and other diseases of the circulatory system; Z83.3 Family history of diabetes mellitus; Z87.891 Personal history of nicotine dependence; Z90.49 Acquired absence of other specified parts of digestive tract; Z88.1 Allergy status to other antibiotic agents; Z91.041 Radiographic dye allergy status; Z91.040 Latex allergy status; Z88.8 Allergy status to other drugs, medicaments and biological substances; Z91.09 Other allergy status, other than to drugs and biological substances; Z98.890 Other specified postprocedural states
CPT/HCPCS: 36415; 71010; 78452; 80048; 80061; 80076; 81001; 81025; 82553; 83735; 83880; 84443; 84484; 85027; 93005; 93017; 93306; 96374; 96376; A9500; G0481; J1815; J2785; J3010; J7030; 99285-25